=== PATIENT | female | born 1935 | race African-American/Black ===

== ENCOUNTER 2016-06-03 21:52 | Observation (INO) ==
[2016-06-03] MEDS ORDERED: CEFTAROLINE 600 MG in SODIUM CHLORIDE 0.9% 100 ML IV STA (23:30)
[2016-06-03] MEDS ORDERED: SODIUM CHLORIDE 0.9% 500 ML IV STA (23:30)
[2016-06-03] MEDS ORDERED: CEFTAROLINE 600 MG VIAL IV ONE (23:59)
--- NOTE | 2016-06-04 00:12 | Emergency Department Note ---
Joel Wang Brittany, am scribing for, and in the presence of, Krzysztof Sheikh MD 23:30. Aguilar Wang Charles R, MD, personally performed the services described in this documentation, ascribed by Robina Maldonado in my presence, and it is both accurate and complete . Arrival - Arrival Chief Complaint: Extremity Problem Stated Complaint: LEG PAIN ED Nursing Triage Note: patient to triage with c/o BLE pain and reddness that started 2 days ago. patient is a diabetic. also c/o aore to buttock they want checked out. Mode of Arrival: Wheelchair Limitations: No Limitations Source: Patient, Family, RN Notes Reviewed Time Seen by Provider: 06/03/16 22:17 - History of Present Illness HPI Narrative: Patient is a 81 y/o female presenting to the ED with c/o BLE pain and redness that onset 2 days ago. Patient is accompanied by a family member that provides majority of the history. Family member reports that patient has been having pain , redness, and swelling to the bilateral lower extremities. 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 Upon exam it appears that patient has weeping venous stasis. Patient denies having any shortness of breath. Family member also reports that patient has an area to the sacral region that they would like to be looked at. Upon exam it is apparent that patient has a stage II necrotizing decubitus ulcer. Family member notes that patient does live somewhat of a sedentary lifestyle with which she lays in bed and sits up in a chair for the most part. She reports that patient is continent both bowel and bladder so this ulcer is not a result of incontinence episodes. No other complaint/pain in the ED at this time. Date of Last Menstrual Period: hyst Allergies/Adverse Reactions: Allergies Allergy/AdvReac Type Severity Reaction Status Date / Time aspirin Allergy RASH Verified 06/03/16 21:59 pregabalin [From Lyrica] Allergy RASH Verified 06/03/16 21:59 Home Medications: Home Medications Medication Instructions Recorded Confirmed Type Atenolol 50 mg PO DAILY 06/03/16 06/03/16 History Cetirizine Tab [ZyrTEC Tab] 10 mg PO BEDTIME 06/03/16 06/03/16 History Clopidogrel [Plavix] 75 mg ONE NARE DAILY 06/03/16 06/03/16 History Ergocalciferol (Vitamin D2) 1 capsule PO Q7DAY 06/03/16 06/03/16 History [Vitamin D2] Gabapentin 300 mg PO TID 06/03/16 06/03/16 History Glipizide [Glipizide Xl] 5 mg PO DAILY 06/03/16 06/03/16 History HYDROcodone/ACETAMIN 7.5-325 1 tablet PO TID PRN 06/03/16 06/03/16 History [[place] 7.5-325] Hum Insulin NPH/Reg Insulin Hm 26 units SUBCUT AC SUPPER 06/03/16 06/03/16 History [NovoLIN 70/30] Hum Insulin NPH/Reg Insulin Hm 46 units SUBCUT AC BREAKFAST 06/03/16 06/03/16 History [NovoLIN 70/30] Lactobacillus Cmb#7/Fos/Inulin 1 tablet PO DAILY 06/03/16 06/03/16 History [Probiotic Complex Tablet] Nystatin Powder [Mycostatin Powder] 1 applic TOP TID 06/03/16 06/03/16 History Pravastatin [Pravachol] 40 mg PO BEDTIME 06/03/16 06/03/16 History amLODIPine [Norvasc] 5 mg PO DAILY 06/03/16 06/03/16 History tiZANidine [Zanaflex] 4 mg PO BEDTIME PRN 06/03/16 06/03/16 History Review of System - Review of System 12 point system: reviewed and no additional remarkable complaints except as stated - Review of System Constitutional: Absent: fever Respiratory: Absent: respiratory distress Musculoskeletal: Present: as per HPI, leg pain Skin: Present: as per HPI Medical,Surgical,& Family Hx - Medical History Cardio: History of: Hypertension Endocrine: History of: Diabetes Mellitus (IDDM), Dyslipidemia - Social History Smoking Status: Never smoker Frequency of Alcohol Use: None Type of Drug Use: None Exam Vital Signs: Vital Signs Temperature 98.2 F 06/03/16 21:54 Pulse Rate 69 06/03/16 21:54 Respiratory Rate 20 06/03/16 21:54 Blood Pressure 90/42 06/03/16 21:54 O2 Sat by Pulse Oximetry 96 06/03/16 21:54 - General General appearance: alert, in no apparent distress - Head Head exam: Present: atraumatic, normocephalic, normal inspection - Eye Eye exam: Present: normal appearance, PERRL, EOMI - ENT ENT exam: Present: normal exam, normal oropharynx - Neck Neck exam: Present: normal inspection, full ROM, trachea midline - Chest Chest inspection: Present: normal inspection, symmetric chest wall rise - Respiratory Respiratory exam: Present: normal lung sounds bilaterally. Absent: rales, rhonchi, wheezes - Cardiovascular Cardiovascular exam: Present: regular rate, normal rhythm, normal heart sounds. Absent: murmur, rubs, gallop - Abdominal Exam Abdominal exam: Present: soft, normal bowel sounds. Absent: distention, tenderness - Extremities Exam Extremities exam: Present: full ROM. Absent: normal inspection (weeping venous stasis to the bilateral lower extremities with erythema and warmth to touch) - Back Exam Back exam: Present: normal inspection - Neurological Exam Neurological exam: Present: alert, oriented X3, CN II-XII intact. Absent: motor sensory deficit - Psychiatric Psychiatric exam: Present: normal affect - Skin Skin exam: Present: warm, dry. Absent: intact (stage II necrotic decubitus ulcer) Course - Consultations Consultation #1: Hospitalist will admit patient Time: 01:06 Results - Labs CBC & BMP: 06/03/16 00:16 06/03/16 00:16 Lab Results: I have reviewed the patients labs Labs: Laboratory Tests 06/03/16 06/03/16 00:16 00:16 WBC 7.0 RBC 3.94 Hgb 11.2 L Hct 35.0 L Plt Count 123 L MPV 14.5 H Sodium 140 Potassium 4.6 Chloride 105 Carbon Dioxide 26 BUN 18 Creatinine 1.10 H Glucose 203 H Albumin 3.3 L Albumin/Globulin Ratio 1.0 L - Diagnostic Findings Procedure: Ultrasound: image reviewed by me (No DVT on ultrasound) Disposition Clinical Impression: Cellulitis, Lower extremity edema, Decubitus ulcer, stage II, Debility, Morbid obesity, Generalized weakness Case discussed with: patient, patient's family Disposition: Still a Patient Condition: Stable Time of Disposition: 01:06
[2016-06-04 00:32] LABS: Basophils % 0.6 % (0.0-0.8); Eosinophils # 0.2 10*3/uL (0.0-0.87); Eosinophils % 2.3 % (0.00-10.9); Hemoglobin 11.2 GM/DL (12.0-16.0); Immature Granulocytes % 0.3 %; Immature Granulocytes Absolute 0.02 #; Lymphocytes # 2.5 10*3/uL (1.4-4.0); Lymphocytes % 36.1 % (21.3-54.2); Mean Corpuscular Hemoglobin 28 PG (27-34); Mean Corpuscular Volume 88.8 FL (87-102); Mean Platelet Volume 14.5 FL (9.6-12.0); Monocytes # 0.6 10*3/uL (0.11-0.8); Monocytes % 9.2 % (1.7-12.7); Neutrophils # 3.6 10*3/uL (1.4-7.4); Neutrophils % 51.5 % (38.7-73.9); Platelet Count 123 T/CUMM (130-400); Red Blood Count 3.94 MC/CUMM (3.8-5.5); Red Cell Distribution Width 13.6 % (9.3-17.3)
[2016-06-04 00:54] LABS: Alanine Aminotransferase 16 U/L (13-56); Albumin 3.3 G/DL (3.4-5.0); Alkaline Phosphatase 101 U/L (45-117); Aspartate Amino Transferase 13 U/L (0-37); Bilirubin,Total < 0.39 MG/DL (0.2-1.0); Blood Urea Nitrogen 18 MG/DL (7-18); Calcium 8.8 MG/DL (8.5-10.1); Glucose 203 MG/DL (74-106); Magnesium 2.2 MG/DL (1.8-2.4); Osmolality,Calculated 286.4 MOS/KG (273-304); Potassium 4.6 MMOL/L (3.5-5.1); Sodium 140 MMOL/L (136-145); Total Protein 6.6 G/DL (6.4-8.3)
[2016-06-04] MEDS ORDERED: FUROSEMIDE 40 MG/4 ML VIAL IV STA (01:07)
[2016-06-04] MEDS ORDERED: FUROSEMIDE 40 MG/4 ML VIAL ONE (01:13)
[2016-06-04] MEDS ORDERED: tiZANidine 4 MG TABLET PO PRN (03:14)
[2016-06-04] MEDS ORDERED: ACETAMINOPHEN 325 MG TABLET PO PRN (03:15)
[2016-06-04] MEDS ORDERED: BISACODYL 5 MG TABLET PO PRN (03:15)
[2016-06-04] MEDS ORDERED: DEXTROSE 50% 25 GM/50 ML VIAL IV PRN (03:15)
[2016-06-04] MEDS ORDERED: ONDANSETRON 4 MG/2 ML VIAL IV PRN (03:15)
[2016-06-04] MEDS ORDERED: GLUCAGON 1 MG VIAL IM PRN (03:15)
[2016-06-04] MEDS ORDERED: MORPHINE 2 MG/1 ML SYRINGE IV PRN (03:15)
--- NOTE | 2016-06-04 03:18 | Hospitalist History & Physical ---
Assessment and Plan (1) Bilateral lower leg cellulitis Status: Acute Current Visit: Yes (2) Venous stasis ulcer of ankle Status: Acute Current Visit: Yes (3) Morbid obesity Status: Acute Current Visit: Yes (4) Decubitus ulcer, stage II Status: Acute Current Visit: Yes (5) Insulin dependent diabetes mellitus Status: Acute Assessment and plan: Plan: Admit for IV antibiotics, check blood cultures Wound care consultation for lower leg venous stasis ulcers Surgical consultation for sacral decubitus ulcer Continue insulin and Accu-Cheks, home meds as appropriate Current Visit: Yes History of Present Illness Chief complaint: Bilateral leg pain History of present illness: Ms. Farfan is a 81 year old female with insulin-dependent diabetes, morbid obesity, hypertension, and sacral decubitus ulcer who has had 2-3 days of bilateral lower extremity pain and serous weeping from the lower extremities. She reports approximately 5 out of 10 pain of the lower extremities, partially alleviated with pain medication. She also has a sacral decubitus ulcer that is painful. She is largely bedbound, morbidly obese. She denies fever chills shortness of breath nausea vomiting or diarrhea. Her symptoms of pain are constant and worsened over the last 2 days. Home Medications Medication Instructions Recorded Confirmed Type Atenolol 50 mg PO DAILY 06/03/16 06/03/16 History Cetirizine Tab [ZyrTEC Tab] 10 mg PO BEDTIME 06/03/16 06/03/16 History Clopidogrel [Plavix] 75 mg ONE NARE DAILY 06/03/16 06/03/16 History Ergocalciferol (Vitamin D2) 1 capsule PO Q706/03/16 06/03/16 History [Vitamin D2] Gabapentin 300 mg PO TID 06/03/16 06/03/16 History Glipizide [Glipizide Xl] 5 mg PO DAILY 06/03/16 06/03/16 History HYDROcodone/ACETAMIN 7.5-325 1 tablet PO TID PRN 06/03/16 06/03/16 History [[place] 7.5-325] Hum Insulin NPH/Reg Insulin Hm 26 units SUBCUT AC SUPPER 06/03/16 06/03/16 History [NovoLIN 70/30] Hum Insulin NPH/Reg Insulin Hm 46 units SUBCUT AC BREAKFAST 06/03/16 06/03/16 History [NovoLIN 70/30] Lactobacillus Cmb#7/Fos/Inulin 1 tablet PO DAILY 06/03/16 06/03/16 History [Probiotic Complex Tablet] Nystatin Powder [Mycostatin Powder] 1 applic TOP TID 06/03/16 06/03/16 History Pravastatin [Pravachol] 40 mg PO BEDTIME 06/03/16 06/03/16 History amLODIPine [Norvasc] 5 mg PO DAILY 06/03/16 06/03/16 History tiZANidine [Zanaflex] 4 mg PO BEDTIME PRN 06/03/16 06/03/16 History Allergies Allergy/AdvReac Type Severity Reaction Status Date / Time aspirin Allergy RASH Verified 06/03/16 21:59 pregabalin [From Lyrica] Allergy RASH Verified 06/03/16 21:59 Medical,Surgical,& Family Hx - Medical History Cardio: History of: Hypertension Endocrine: History of: Diabetes Mellitus (IDDM), Dyslipidemia - Surgical History Additional Surgical History: No known surgeries - Family History Family History: Reports;: Family Hypertension - Social History Smoking Status: Never smoker Frequency of Alcohol Use: None Type of Drug Use: None Marital Status: Unknown Functional capacity: bed bound Review of systems: A 12 point review of systems is negative except as specified in the HPI Exam - Constitutional Vitals: Period Temp Pulse Resp BP Sys/Moore Pulse Ox Last 24 Hr 98.2 F 69 20 90/42 96 Exam: EXAM: CONSTITUTIONAL: Morbidly obese, non toxic, NAD HEENT: NC, AT, OP benign, BEBO, EOMI CV: RRR no m/g/r RESP: clear B/L, no w/r/r GI: abd soft, NT, ND, +bowel sounds INTEGUMENTARY: No rash, stage II sacral decubitus ulcer EXTREMITIES: Bilateral lower extremities with 2+ pitting edema, venous stasis ulcers and serous weeping NEURO: no focal deficits PSYCH: Awake, alert, pleasant Results - Labs CBC & BMP: 06/03/16 00:16 06/03/16 00:16 Lab Results: I have reviewed the past 24 hour labs - EKG EKG shows: sinus rhythm (With first-degree AV block) - Diagnostic Findings Procedure: Chest x-ray: image reviewed by me, Ultrasound: image reviewed by me
[2016-06-04] MEDS ORDERED: SODIUM CHLORIDE 0.9% 1,000 ML IV SCH (03:30)
--- NOTE | 2016-06-04 07:06 | Ultrasound Report ---
Bilateral lower extremity venous Doppler with ray scale, Spectral Doppler and color-flow analysis performed and interpreted. Indication: Pain and swelling Scanning over both common femoral veins, superficial femoral veins, greater saphenous veins and popliteal veins demonstrates normal compressibility, color flow, and augmentation. Impression: No evidence of DVT seen in either lower extremity. PROCEDURE INTERPRETED AT [facility] DEPARTMENT OF RADIOLOGY Final Report Signed by: Dr. Donna Willard
[2016-06-04 07:19] LABS: Basophils # 0.1 10*3/uL (0.0-0.2); Basophils % 0.7 % (0.0-0.8); Eosinophils # 0.2 10*3/uL (0.0-0.87); Eosinophils % 2.4 % (0.00-10.9); Hematocrit 36.5 VOL% (35.7-47.0); Hemoglobin 11.6 GM/DL (12.0-16.0); Immature Granulocytes % 0.3 %; Immature Granulocytes Absolute 0.02 #; Lymphocytes # 3.3 10*3/uL (1.4-4.0); Lymphocytes % 45.7 % (21.3-54.2); Mean Corpuscular HGB Conc 31.8 GM/DL (32-36); Mean Corpuscular Hemoglobin 29 PG (27-34); Mean Corpuscular Volume 89.9 FL (87-102); Monocytes # 0.6 10*3/uL (0.11-0.8); Monocytes % 8.6 % (1.7-12.7); Neutrophils % 42.3 % (38.7-73.9); Platelet Count 135 T/CUMM (130-400); Red Blood Count 4.06 MC/CUMM (3.8-5.5); Red Cell Distribution Width 13.7 % (9.3-17.3); White Blood Count 7.2 T/CUMM (4-12)
[2016-06-04 07:42] LABS: Elliptocytes Few; Hypochromasia 1+; Platelet Estimate Normal
[2016-06-04 07:47] LABS: Calcium 8.6 MG/DL (8.5-10.1); Magnesium 2.1 MG/DL (1.8-2.4); Osmolality,Calculated 282.5 MOS/KG (273-304); Potassium 4.3 MMOL/L (3.5-5.1)
--- NOTE | 2016-06-04 08:25 | XRay Report ---
Portable chest. Indication: Shortness of breath and edema. Comparison: December 28, 2013. The heart is enlarged, increased from the previous. There is atelectasis present at each lung base. The pulmonary vasculature is prominent. Small pleural effusions cannot be excluded. Degenerative changes of the spinal column and shoulders. Impression: Findings suggesting congestive heart failure. Basilar atelectasis. PROCEDURE INTERPRETED AT [facility] DEPARTMENT OF RADIOLOGY Final Report Signed by: Dr. Donna Willard
[2016-06-04] MEDS: INSULIN NPH/REGULAR 70/30 100 UNIT/ML SUBCUT SCH (08:49)
[2016-06-04] MEDS: GABAPENTIN 300 MG CAPSULE PO SCH ×3 (08:56→20:39)
[2016-06-04] MEDS: amLODIPine 5 MG TABLET PO SCH (08:56)
[2016-06-04] MEDS: LACTOBACILLUS ACIDOPHILUS/BULGARICUS CAPLET PO SCH (08:57)
[2016-06-04] MEDS: PANTOPRAZOLE 40 MG TABLET PO SCH (08:57)
[2016-06-04] MEDS: CEFTAROLINE 600 MG in SODIUM CHLORIDE 0.9% 100 ML IV SCH ×2 (08:58→20:38)
[2016-06-04] MEDS ORDERED: ERGOCALCIFEROL 50,000 UNIT CAPSULE PO SCH (09:00)
[2016-06-04] MEDS ORDERED: ATENOLOL 50 MG TABLET PO SCH (09:00)
--- NOTE | 2016-06-04 09:14 | EKG Report ---
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
[2016-06-04] MEDS: INSULIN REGULAR 100 UNIT/ML SUBCUT SCH ×4 (11:32→20:39)
[2016-06-04] MEDS: NYSTATIN POWDER 15 GM BOTTLE TOP SCH ×3 (11:33→20:39)
[2016-06-04] MEDS: ENOXAPARIN 40 MG/0.4 ML SYRINGE SUBCUT SCH (11:33)
--- NOTE | 2016-06-04 11:51 | General Surgery Consult Note ---
Assessment and Plan - Time spent with patient Time spent with patient: Less than 30 minutes (1) Decubitus ulcer, stage II Status: Acute Assessment and plan: This area appears to be chronic and has no necrotic tissue that needs debridement. It does not appear to be actively infected. I see nothing to debride and I'm going to consult the wound care nurse to look at local measures to reduce pressure in this area and promote healing. Current Visit: Yes Qualifiers: Pressure ulcer location: sacral region Qualified Code(s): L89.152 - Pressure ulcer of sacral region, stage 2 History of Present Illness Chief complaint: sacral ulcer History of present illness: Ms. Farfan is a 81 year old female Who is had pain in her sacral area for about 2 weeks. Her family has not really been able to see this area well. She is morbidly obese and not very mobile. She has not had fever or chills. She was admitted because of bilateral lower extremity cellulitis. She is not had drainage from her sacral area. It is painful to touch. She is unaware of any purulence or feeling of a mass in this location. Home Medications Medication Instructions Recorded Confirmed Type Atenolol 50 mg PO DAILY 06/03/16 06/03/16 History Cetirizine Tab [ZyrTEC Tab] 10 mg PO BEDTIME 06/03/16 06/03/16 History Clopidogrel [Plavix] 75 mg ONE NARE DAILY 06/03/16 06/03/16 History Ergocalciferol (Vitamin D2) 1 capsule PO Q706/03/16 06/03/16 History [Vitamin D2] Gabapentin 300 mg PO TID 06/03/16 06/03/16 History Glipizide [Glipizide Xl] 5 mg PO DAILY 06/03/16 06/03/16 History HYDROcodone/ACETAMIN 7.5-325 1 tablet PO TID PRN 06/03/16 06/03/16 History [[place] 7.5-325] Hum Insulin NPH/Reg Insulin Hm 26 units SUBCUT AC SUPPER 06/03/16 06/03/16 History [NovoLIN 70/30] Hum Insulin NPH/Reg Insulin Hm 46 units SUBCUT AC BREAKFAST 06/03/16 06/03/16 History [NovoLIN 70/30] Lactobacillus Cmb#7/Fos/Inulin 1 tablet PO DAILY 06/03/16 06/03/16 History [Probiotic Complex Tablet] Nystatin Powder [Mycostatin Powder] 1 applic TOP TID 06/03/16 06/03/16 History Pravastatin [Pravachol] 40 mg PO BEDTIME 06/03/16 06/03/16 History amLODIPine [Norvasc] 5 mg PO DAILY 06/03/16 06/03/16 History tiZANidine [Zanaflex] 4 mg PO BEDTIME PRN 06/03/16 06/03/16 History Allergies Allergy/AdvReac Type Severity Reaction Status Date / Time aspirin Allergy RASH Verified 06/03/16 21:59 pregabalin [From Lyrica] Allergy RASH Verified 06/03/16 21:59 Medical,Surgical,& Family Hx - Medical History Cardio: History of: Hypertension Endocrine: History of: Diabetes Mellitus (IDDM), Dyslipidemia Musculoskeletal: History of: Back/Neck Problems (cant move neck to leg) - Surgical History Reproductive Surgeries: Surgical HX of;: Hysterectomy - Family History Family History: Reports;: Family Hypertension - Social History Smoking Status: Never smoker Frequency of Alcohol Use: None Type of Drug Use: None - Constitutional Constitutional: Absent: anorexia, chills, fever(s) - Cardiovascular Cardiovascular: Absent: chest pain at rest, dyspnea - Respiratory Respiratory: Absent: dyspnea - Gastrointestinal Gastrointestinal: Absent: abdominal pain Exam - Constitutional Vitals: Period Temp Pulse Resp BP Sys/Moore Pulse Ox Last 24 Hr 97.7 F 62-64 18-20 129-133/54-69 92-97 General appearance: no acute distress, morbidly obese - Head Head exam: Present: normal inspection - Eye Eye exam: Absent: scleral icterus - ENT Mouth exam: Present: normal voice - Respiratory Respiratory exam: Present: clear to auscultation bilaterally. Absent: accessory muscle use - Cardiovascular Cardiovascular exam: Present: RRR - Back Exam Back exam: Present: other (there is a chronic appearing area of healing sacral breakdown. All tissue appears viable and there is granulation tissue. This process appears to be limited to the skin and superficial subcutaneous layer. This is a irregularly shaped area about 1 cm wide by about 3 cm in length. It has somewhat of a stellate shape. There is no palpable abscess or mass associated with it.) Results - Labs CBC & BMP: 06/04/16 06:32 06/04/16 06:32 Lab Results: I have reviewed the past 24 hour labs - Diagnostic Findings Procedure: Ultrasound: report reviewed by me
--- NOTE | 2016-06-04 12:14 | Hospitalist Progress Note ---
Assessment and Plan - Time spent with patient Time spent with patient: Less than 30 minutes (1) Decubitus ulcer, stage II Status: Acute Assessment and plan: Ms. Farfan is an 81-year-old female with diabetes, venous stasis ulcers and sacral pressure ulcer. She was admitted with bilateral lower extremity pain and pain in the sacral region. She has been started on Teflaro and Dr. Gena BURT was consulted. He recommended wound care nurse to write orders for bilateral lower extremities and sacral pressure relief. No indication for surgery at this time. Bilateral lower leg cellulitis--patient is on Teflaro and wound care nurse has been consulted for wound care orders. Venous stasis ulcer of the ankle--see above Morbid obesity and debility--patient has multiple family members that are present and very supportive. She lives at home and they take care of her. May look at getting her some home health for assistance and possible physical therapy. Decubitus ulcer stage II--Dr. Gena BURT has been consulted, seen and examined patient. He does not recommend surgery at this time. He recommended pressure relief per wound care nurses instructions. We will have him follow-up with wound care center upon discharge. Insulin-dependent diabetes--her home insulin has been restarted Accu-Cheks showing blood sugars and high 100s and low 200s. Patient does not follow an appropriate diet. Will consult dietitian. Patient's plan of care has been discussed with Dr. Farris. Further recommendations to follow. Once wound care orders have been placed and patient is doing well can may be DC home later today or tomorrow. Current Visit: Yes Qualifiers: Pressure ulcer location: sacral region Qualified Code(s): L89.152 - Pressure ulcer of sacral region, stage 2 (2) Bilateral lower leg cellulitis Status: Acute Current Visit: Yes (3) Morbid obesity Status: Acute Current Visit: Yes (4) Insulin dependent diabetes mellitus Status: Acute Current Visit: Yes Hospitalist: Subjective Interval history: Patient sitting up on the edge of bed eating lunch today. She has multiple family members present. She states her leg and bottom are feeling somewhat better today. She has no further complaints. She is ready to go home. She has multiple family members and grandchildren in the room that all live near and around her to help take care of her. Dr. Gena Palafox is seen the patient and he sees no necrotic tissue requiring debridement at this time. Wound care nurse will write orders for bilateral lower extremity wounds and sacral pressure relief for home. 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 No signs of infectious process. Results - Labs CBC & BMP: 06/04/16 06:32 06/04/16 06:32 Lab Results: I have reviewed the past 24 hour labs - Diagnostic Findings Procedure: CT: report reviewed by me (Normal)
[2016-06-04] MEDS: COLLAGENASE OINT 30 GM TUBE TOP SCH (16:29)
[2016-06-04] MEDS: SKIN HEALING OINT (AQUAPHOR) 50 GM TUBE TOP PRN (16:30)
[2016-06-04] MEDS ORDERED: INSULIN NPH/REGULAR 70/30 100 UNIT/ML SUBCUT SCH (16:30)
[2016-06-04] MEDS ORDERED: CETIRIZINE 10 MG TABLET PO SCH (21:00)
[2016-06-04] MEDS ORDERED: PRAVASTATIN 40 MG TABLET PO SCH (21:00)
[2016-06-05 07:47] VITALS: BP 109/50
[2016-06-05] MEDS: COLLAGENASE OINT 30 GM TUBE TOP SCH (08:29)
[2016-06-05] MEDS: NYSTATIN POWDER 15 GM BOTTLE TOP SCH (08:29)
[2016-06-05] MEDS: SKIN HEALING OINT (AQUAPHOR) 50 GM TUBE TOP PRN (08:30)
[2016-06-05] MEDS: INSULIN NPH/REGULAR 70/30 100 UNIT/ML SUBCUT SCH (08:30)
[2016-06-05] MEDS: INSULIN REGULAR 100 UNIT/ML SUBCUT SCH (08:31)
[2016-06-05] MEDS: amLODIPine 5 MG TABLET PO SCH (08:31)
[2016-06-05] MEDS: GABAPENTIN 300 MG CAPSULE PO SCH (08:31)
[2016-06-05] MEDS: ENOXAPARIN 40 MG/0.4 ML SYRINGE SUBCUT SCH (08:31)
[2016-06-05] MEDS: PANTOPRAZOLE 40 MG TABLET PO SCH (08:31)
[2016-06-05] MEDS: LACTOBACILLUS ACIDOPHILUS/BULGARICUS CAPLET PO SCH (08:31)
[2016-06-05] MEDS: CEFTAROLINE 600 MG in SODIUM CHLORIDE 0.9% 100 ML IV SCH (08:32)
--- NOTE | 2016-06-05 09:03 | Discharge Summary ---
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 She was seen by Dr Avery who recommended local care. he did not think it was infected. She also had some breakdown and stasis ulcers on he rlower extremities which were also addressed by the wound care nurse. She has received Teflaro and will be discharged on Cipro to address the local cellulitis in her lower extremities. She is feeling good this morning and reports her pain is resolved. She requests discharge and I think she has received maximum benefit from this hospital stay. - Time spent with patient Time with patient DS: Less than 30 minutes Diagnosis - Discharge Diagnosis (1) Decubitus ulcer, stage 3 Status: Acute (2) Bilateral lower leg cellulitis Status: Acute (3) Debility Status: Acute (4) Insulin dependent diabetes mellitus Status: Acute (5) Morbid obesity Status: Acute (6) Venous stasis ulcer of ankle Status: Acute Specialty Discharge - Follow Up or Referrals Follow up with: Your, PCP [Other] (family practice at [place] on [address] call and make her appt for a week) Jack Avery III., MD [Physician] - 2 Weeks (wound care center) - Speciality Discharge Instructions Surgery Instructions: follow instructions for wound care from Dr Avery Discharge Plan - Discharge Data Disposition: Home Health Service Condition at Discharge: Stable Discharge Diet: diabetic diet, heart healthy Activity: resume usual activities as tolerated - Discharge Medications New Collagenase Oint [Santyl Oint] 1 applic TOP DAILY applic Skin Healing Oint (Aquaphor) [Aquaphor] 1 applic TOP PRN PRN #0 applic PRN Reason: Dry Skin Ciprofloxacin Tab [Cipro Tab] 500 mg PO BID #30 tablet Continue amLODIPine [Norvasc] 5 mg PO DAILY HYDROcodone/ACETAMIN 7.5-325 [[place] 7.5-325] 1 tablet PO TID PRN PRN Reason: Pain Cetirizine Tab [ZyrTEC Tab] 10 mg PO BEDTIME Gabapentin 300 mg PO TID Glipizide [Glipizide Xl] 5 mg PO DAILY Atenolol 50 mg PO DAILY Lactobacillus Cmb#7/Fos/Inulin [Probiotic Complex Tablet] 1 tablet PO DAILY Ergocalciferol (Vitamin D2) [Vitamin D2] 1 capsule PO Q7DAY Hum Insulin NPH/Reg Insulin Hm [NovoLIN 70/30] 26 units SUBCUT AC SUPPER Hum Insulin NPH/Reg Insulin Hm [NovoLIN 70/30] 46 units SUBCUT AC BREAKFAST Nystatin Powder [Mycostatin Powder] 1 applic TOP TID tiZANidine [Zanaflex] 4 mg PO BEDTIME PRN PRN Reason: Muscle Spasm Pravastatin [Pravachol] 40 mg PO BEDTIME Clopidogrel [Plavix] 75 mg ONE NARE DAILY - Follow Up or Referral - Forms/Instructions Exam - Constitutional Vitals: Period Temp Pulse Resp BP Sys/Moore Pulse Ox Last 24 Hr 98.1 F-99.1 F 64-114 16-20 109-144/45-72 94-98 General appearance: no acute distress, morbidly obese - Eye Eye exam: Present: EOMI. Absent: scleral icterus - Respiratory Respiratory exam: Present: clear to auscultation bilaterally - Cardiovascular Cardiovascular exam: Present: regular rate and rhythm - GI/Abdominal GI/Abdominal exam: Present: normal bowel sounds, soft - Extremities Exam Extremities exam: Present: edema (LE with 2+edema and erythema below calf, focal stasis ulcer as described/pictured in wound nurse note), other (presacral decub dressed, see wound care note for description. ) Discharge Results Labs on day of discharge: Labs from last 24 hours 06/05/16 06/04/16 06/04/16 07:30 20:02 15:01 POC Glucose 133 H 169 H 177 H 06/04/16 10:43 POC Glucose 206 H DS: Provider Date of admission: 06/04/16 03:15 Primary care physician: . No PCP Attending physician on admission: Sanjuana Farris MD Consults: 06/04/16 03:17 Consult to Physician [CONS] Routine Comment: necrotic decubitus ulcer Consulting Provider: Jack Avery III. Consult to Specialist Group: Surgery When should Consulting Provider be notified: In am Person Notified: OSCAR Date Notified: 06/04/16 Time Notified: 09:30 06/04/16 12:23 Consult to Dietitian [CONS] Routine Reason for Dietitian: Diet Instruction Discharging clinician: Sanjuana Farris MD
== END 2016-06-05 11:30 | disposition home health service (06) ==
LOC: N.ED 21:52 → INTOOBSV 06-04 03:15 → N.EDINP 06-04 03:15 → N.2E 06-04 03:53
PROVIDERS: ADMIT Internal Medicine; ATTEND Internal Medicine